=== PATIENT | female | born 1935 | race Caucasian/White ===

== ENCOUNTER 2018-09-03 16:04 | Emergency (ER) | payer MEDICARE, BC, OTHER, SELFPAY ==
[2018-09-03 16:06] VITALS: BP 148/87; PULSE 81; RESP 14; TEMP 36.6; O2SAT 94
--- NOTE | 2018-09-03 16:19 | W.ED.GENAD ---
Discharge Plan Disposition Patient Disposition: HOME Condition: Stable Discharge Details Chief Complaint: EyeProblem Clinical Impression: Diplopia Primary Care Provider: Niya Lange ED Provider: Laurent Cannon Discharge Instructions Instructions: Diplopia (ED) Additional Instructions: Return immediately to the emergency department for any new or significant worsening of symptoms, additional neurological dysfunctions, or any further concerns. Otherwise keep your ophthalmology appointment tomorrow and call your neurologist for arrangement of follow-up appointment preferably in the next week. Referrals: Niya Lange [Primary Care Provider] - (For reassessment of your symptoms and any referrals as needed) Discharge Data Discharge Date/Time-TO BE ENTERED AT DEPARTURE: 09/03/18 19:43 Medical Decision Making Patient presenting to the emergency department for chief complaint of difficult diplopia. Patient reports that this is been going on for the past 2 weeks and denies any event that started her symptoms. She denies fever chills, headache, other neurological symptoms or deficiencies. She states that mostly it occurs when she is concentrating, driving, or noticed that while watching a movie last night that was a 3D movie with the specialized glasses. She denies any pain or discomfort to her eyes, flashes or floaters. 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 Patient does state that right eye does feel slightly abnormal . Plan to do head CT and labs and if head CT is clear do CTA. Given that this is been going on for 2 weeks with no drastic changes and patient is stable I do not feel that there are any emergent interventions needed at this time and no other neurological symptoms are noted. After review of initial CT scan and radiologist interpretation showed no acute findings patient was reassessed and further ocular testing was performed and patient does seem to be left eye dominant and when patient has direct forward gaze she has no double vision but as she looks laterally to either side the diplopia shows secondary object that always appears to the right. Mild medial rectus palsy on reassessment had significantly reduced and is not as appreciable as it was initially. Ant-Pen was also utilized and pressures on repeat readings were within normal limits and not elevated. plan to do CTA. Labs were reviewed and are unremarkable and nondiagnostic. CTA reviewed and showed no acute findings noted. Given that this is been going on for 2 weeks, no radiological finding of emergent concern, and patient having appropriate ophthalmological exam tomorrow and no other neurological symptoms on repeat assessment I feel that patient is able to be safely discharged with strict return precautions discussed with both family and patient. After discussion of diagnosis and plan of care patient has no further needs, questions, or concerns and states clear understanding to return to the emergency department for any worsening symptoms. HPI General Mode of arrival: ambulatory. Date/Time Provider Initiated Documentation: 09/03/18 16:10. Limitations to Documentation: no limitations. Information obtained by: patient, family and RN notes reviewed. History of Present Illness 83 year old F presents to the emergency department with the chief complaint of double vision, described as mild, Quality is described as other (denies pain), and is localized to the eyes. Patient started experiencing this week(s) (2) and it has been constant. No relieving factors improve symptom(s), No exacerbating factors reported . Patient notes no other symptoms.. Patient did receive the following treatments prior to arrival, none General Stated Complaint: EyeProblem JODIE: 3 Review of Systems Constitutional Denies fever(s), Denies headache(s) and Denies malaise Eyes Reports as per HPI, Denies blurry vision, Reports diplopia, Denies floaters, Denies loss of peripheral vision, Denies loss of vision, Reports requires corrective lenses and Denies photophobia ENT Denies vertigo and Denies headache(s) Cardiovascular Denies chest pain and Denies syncope Neurologic Denies vertigo, Denies syncope, Denies headache(s), Denies loss of vision and Denies sensory deficit [facility] Medical History (Updated 09/03/18 @ 17:00 by Laurent Cannon NP) Diverticulosis (Acute) Hyperthyroidism (Resolved) Ulcerative colitis (Chronic) Social History Alcohol Intake: never Drug use: Never Substance use type: does not use Exam Const General: cooperative, healthy appearing, no acute distress and well groomed Orientation: alert, awake and oriented x3 HENMT Head: normal to inspection, normocephalic and atraumatic Ears: hearing grossly normal bilaterally and TM's normal bilaterally Mouth: oral mucosae normal and moist mucous membranes Throat: posterior oropharynx normal, tonsils normal and uvula midline Eyes Visual Clark: normal visual clark by confrontation Alignment and Position: alignment normal Periorbital: periorbital findings normal Eyelids: eyelids normal Conjunctivae: conjunctivae normal Sclera: sclerae normal Cornea: corneas normal Pupils: PERRL, normal by confrontation and accommodation normal EOM: EOM intact bilaterally, movement deficit unable to deviate medially (mild on right) and No nystagmus Neck Neck: normal visual inspection, full ROM, no lymphadenopathy and no meningeal signs Resp Effort & Inspection: normal respiratory effort and able to speak in complete sentences Auscultation: clear to auscultation bilaterally Cardio Rate: regular rate Rhythm: regular rhythm Heart Sounds: S1 normal and S2 normal Neuro General: alert, awake, oriented x3, gait normal, tone normal, moves all extremities and not confused Cranial Nerves: PERRL, accommodation normal, no nystagmus, facial strength normal, tongue midline, gag reflex normal, hearing normal, able to rotate head bilaterally, able to elevate shoulders bilaterally, individual cranial nerve findings III: abnormal (Right Mild medial rectus palsy) and no nystagmus Cognition: normal cognition Speech: speech normal Gait: normal gait and gait assisted Method: walking stick Sensory Exam: no sensory deficits noted Course Vital Signs Temperature 36.6 C 09/03/18 16:06 Pulse 81 09/03/18 16:06 Respiratory Rate 14 09/03/18 16:06 Blood Pressure 148/87 H 09/03/18 16:06 Pulse Oximetry 94 L 09/03/18 16:06 Temperature 36.6 C 09/03/18 16:06 Temperature Source Temporal Artery Scan 09/03/18 16:06 Pulse 81 09/03/18 16:06 Respiratory Rate 14 09/03/18 16:06 Blood Pressure 148/87 H 09/03/18 16:06 Blood Pressure Position Sitting 09/03/18 16:06 Pulse Oximetry 94 L 09/03/18 16:06 Oxygen Delivery Method Room Air 09/03/18 16:06 Oxygen Flow Rate 0 09/03/18 16:06 Pain Level 0 09/03/18 16:06
--- NOTE | 2018-09-03 16:44 | DI.CT_ITS ---
SYMPTOM/DIAGNOSIS: DOUBLE VISION, MILD RT MEDIAL ECTUS PALSY NONCONTRAST HEAD CT: No intracranial hemorrhage, mass or infarct is seen. There is mild atrophy. There are no significant white matter changes. There is no evidence of skull fracture. The sinuses and mastoid air cells appear clear. IMPRESSION: Negative head CT.
--- NOTE | 2018-09-03 16:54 | DI.CT_ITS ---
SYMPTOM/DIAGNOSIS: DIPLOPIA, MILD RIGHT MEDIAL RECTUS JPALSY CT ANGIOGRAPHY OF THE HEAD: CT angiography was performed with multi slice acquisition and multi planar and 3D reconstruction. There is no evidence of occlusion, dissection or significant stenosis involving the visualized portions of the internal carotid arteries and vertebral arteries. The [place] vasculature shows normal diameter. No aneurysms are identified. IMPRESSION: No significant stenosis or evidence of vascular occlusion or dissection.
[2018-09-03 17:21] LABS: Abs Immature Grans 0.03 k/cumm (0.0-0.09); Absolute Basophil Count 0.05 k/cumm (0.0-0.2); Absolute Eosinophil Count 0.61 k/cumm (0.0-0.7); Absolute Lymphocyte Count 1.88 k/cumm (1.2-3.4); Absolute Monocyte Count 1.14 k/cumm (0.11-0.7); Absolute Neutrophil Count 5.28 k/cumm (1.2-6.7); Basophils % 0.6; Eosinophils % 6.8; HCT 41.4 % (36.0-46.0); HGB 13.3 g/dL (12.0-15.5); Immature Grans % 0.3; Lymphocytes % 20.9; Mean Corp. HGB Concentration 32.1 g/dL (32.0-36.0); Mean Corpuscular Hemoglobin 32.1 pg (27.0-33.0); Mean Platelet Volume 9.9 fL (8.0-11.0); Monocytes % 12.7; Neutrophils % 58.7; Platelet Count 312 x1000/uL (130-400); RBC 4.14 m/cumm (4.00-5.20); RBC Distribution Width 11.8 % (11.7-14.6); White Blood Cell Count 8.99 k/cumm (4.4-10.8)
[2018-09-03 17:36] LABS: ALT 52 U/L (12-78); AST 36 U/L (15-37); Albumin 3.9 g/dL (3.4-5.0); Alkaline Phosphatase 126 U/L (46-116); BUN 17 mg/dL (7-18); Bilirubin, Total 0.4 mg/dL (0.2-1.0); CREATININE 0.78 mg/dL (0.55-1.02); Calcium 9.2 mg/dL (8.5-10.1); Chloride 103 mmol/L (98-107); Glucose 89 mg/dL (70-100); Potassium 4.4 mmol/L (3.5-5.1); Sodium 139 mmol/L (136-145); Total Protein 7.2 g/dL (6.4-8.2)
--- NOTE | 2018-09-03 17:48 | DI.VRAD_ITS ---
EXAM: CT Head Without Contrast EXAM DATE/TIME: 09/03/2018 4:49 PM CLINICAL HISTORY: 83 years old, female; Visual disturbance; Additional info: Medial rectus palsey TECHNIQUE: Imaging protocol: Computed tomography images of the head without contrast. Coronal and sagittal reformatted images were created and reviewed. COMPARISON: No relevant prior studies available. FINDINGS: Brain: There is brain parenchymal atrophy. No intracranial hemorrhage is seen. No acute arterial territory stroke is noted. Ventricles: Normal. No ventriculomegaly. Bones/joints: Unremarkable. No acute fracture. Sinuses: Visualized sinuses are unremarkable. No fluid levels. Mastoid air cells: Visualized mastoid air cells are well aerated. No mastoid effusion. Soft tissues: Unremarkable. IMPRESSION: No acute finding Dictated and Authenticated by: Enmanuel Mccullough MD. Ordering:ARMANDO Mancilla MD
[2018-09-03] MEDS: Omnipaque 350 MG/ML 100 ML BTL IJ (17:58)
--- NOTE | 2018-09-03 19:02 | DI.VRAD_ITS ---
EXAM: CT Angiography Head With Contrast EXAM DATE/TIME: 09/03/2018 4:57 PM CLINICAL HISTORY: 83 years old, female; Visual disturbance; Type not specified; Additional info: Medial rectus palsey TECHNIQUE: Imaging protocol: Computed tomographic angiography images of the head with intravenous contrast using CT angiography protocol. Coronal and sagittal reformatted images were created and reviewed. 3D rendering: MIP reconstructed images were created and reviewed. Contrast material: OMNIPAQUE 350;Contrast volume: 85 ml;Contrast route: RAC 20G; COMPARISON: CT HEAD WO 09/03/2018 5:24 PM FINDINGS: Right internal carotid artery: Unremarkable. Intracranial segment is patent with no significant stenosis. No aneurysm. Right anterior cerebral artery: Unremarkable. No occlusion or significant stenosis. No aneurysm. Right middle cerebral artery: Unremarkable. No occlusion or significant stenosis. No aneurysm. Right posterior cerebral artery: Unremarkable. No occlusion or significant stenosis. No aneurysm. Right vertebral artery: Unremarkable. No occlusion or significant stenosis. No aneurysm. Left internal carotid artery: Unremarkable. Intracranial segment is patent with no significant stenosis. No aneurysm. Left anterior cerebral artery: Unremarkable. No occlusion or significant stenosis. No aneurysm. Left middle cerebral artery: Unremarkable. No occlusion or significant stenosis. No aneurysm. Left posterior cerebral artery: Unremarkable. No occlusion or significant stenosis. No aneurysm. Left vertebral artery: Unremarkable. No occlusion or significant stenosis. No aneurysm. Basilar artery: Unremarkable. No occlusion or significant stenosis. No aneurysm. HEAD: Brain: Global cerebral atrophy is consistent with patient's age. Decreased attenuation within the white matter tracts of both cerebral hemispheres is nonspecific but typically seen with small vessel disease/chronic white matter ischemic changes of aging. IMPRESSION: No acute abnormality. Dictated and Authenticated by: Emmanuel Yanez MD. Ordering:ARMANDO Mancilla MD
[2018-09-03 19:40] VITALS: BP 115/95; PULSE 68; RESP 20; TEMP 36.3; O2SAT 97
== END 2018-09-03 19:43 | disposition home or self-care (01) ==
PROVIDERS: Emergency Provider Nurse Practitioner Family
DX: H53.2 Diplopia (principal); H49.21 Sixth [abducent] nerve palsy, right eye
CPT/HCPCS: 36415; 70496; 80053; 99285; 70450; 85025; 99284; J3490

== ENCOUNTER 2023-02-21 13:48 | Outpatient (REF) | payer MEDICARE, BC, OTHER, SELFPAY ==
[2023-02-21 14:51] LABS: Bacteria Negative HPF (Negative); C & S Indicated? C&S Done As Ordered; Casts Negative LPF (Negative); Crystals Negative HPF (Negative); Epithelial Cells Few HPF (Negative); Mucus Negative (Negative); Other Cells Rare Renal (Negative); RBC Negative HPF (0-2); WBC 0-2 HPF (0-5)
== END 2023-02-21 13:49 | disposition home or self-care (01) ==
LOC: NCHCN 13:48
PROVIDERS: Visit Provider Physician Assistant Medical
DX: R30.0 Dysuria (principal)
CPT/HCPCS: 81015; 87086